=== PATIENT | female | born 1930 | race Caucasian/White ===

== ENCOUNTER 2017-02-02 17:31 | Inpatient (IN) ==
[2017-02-02 18:45] LABS: MANUAL DIFF NEEDED? NO
[2017-02-02 18:55] LABS: BASO% 0.2 % (0.0-0.8); EOS# 0.02 X1000 (0.0-0.7); EOS% 0.2 % (0.0-10.0); HEMATOCRIT 41.5 % (37.0-47.0); HEMOGLOBIN 13.5 g/dL (12.0-16.0); IMM GRAN# 0.03 X1000 (0.0-0.04); IMM GRAN% 0.3 % (0.0-0.5); LYMPH# 0.85 X1000 (1.2-3.4); LYMPH% 7.9 % (20.5-51.1); MCH 30.4 PG (27-31); MCHC 32.5 g/dL (33-37); MCV 93.5 FL (81-99); MONO% 8.4 % (1.7-9.3); MPV 10.5 FL (7.4-10.4); PLT 249 X1000 (130-400); RBC 4.44 XMIL (4.2-5.4)
[2017-02-02] MEDS ORDERED: DUONEB (A & A) INH ONE (18:57)
[2017-02-02] MEDS ORDERED: MERREM 500 MG in NS 50 ML IV ONE (18:59)
[2017-02-02 19:19] LABS: ALBUMIN 3.9 g/dL (3.5-5.0); CALCIUM 9.1 mg/dL (8.8-10.2); POTASSIUM 3.8 mmol/L (3.5-5.1); TOTAL BILIRUBIN 0.74 mg/dL (0.20-1.00)
[2017-02-02] MEDS ORDERED: NS 500 ML IV ONE (20:30)
--- NOTE | 2017-02-02 20:40 | PROVIDER DOCUMENTATION ---
This chart was entered by Isabel Rios Scribe, acting as scribe for Chicho Lee MD. HPI-Respiratory General - General Chief Complaint: Possible Sepsis-D Stated Complaint: SOB Time Seen by Provider: 02/02/17 18:26 Source: family (daughter) Allergies/Adverse Reactions: Patient Allergies Allergy/AdvReac Type Severity Reaction Status Date / Time Penicillins Allergy Intermediate ITCHING Verified 07/16/15 18:07 Sulfa (Sulfonamide Allergy Mild Unknown Verified 07/16/15 18:07 Antibiotics) Home Medications: Home Medication List Medication Instructions Recorded Confirmed Last Taken Type Aspirin [Ecotrin] 81 mg PO DAILY 03/27/15 07/16/15 07/16/15 History Atorvastatin Calcium [Lipitor] 80 mg PO DAILY 03/27/15 07/16/15 07/16/15 History Clopidogrel Bisulfate [Plavix] 75 mg PO DAILY 03/27/15 07/16/15 07/16/15 History Lisinopril 10 mg PO DAILY 03/27/15 07/16/15 07/16/15 History Metoprolol Succinate 50 mg PO DAILY 03/27/15 07/16/15 07/16/15 History Levofloxacin [Levaquin] 500 mg PO DAILY #0 tablet 03/30/15 07/16/15 07/16/15 Rx Omeprazole 20 mg PO DAILY #20 tablet. 07/16/15 Unknown Rx - History of Present Illness-Resp Nature of Presenting Problem: 86 Y/O F presents to ED with Respiratory issues. Pt mother states that on Dec 25 the Pt was placed in [facility] for 5 days, diagnosed with CHF,pneumonia , Altered Mental Status, went to rehab after for 12 days then released. Daughter believed that mother is currently sick due to the confusion of taking meds. Daughter states Pt was diagnosed with a URI on Tuesday and finished the 3 day pack of antibiotics. States limited walking, and generalized deterioration of health. Quality of Pain: reports: aching Severity in ED: reports: severe Onset/Duration: reports: 3 days ago Timing: reports: still present Exposure: reports: illness exposure Cough Quality/Degree: reports: productive cough, sputum Current Respiratory Medication Therapy: Initiated none Associated Symptoms: reports: cough, fever/chills, muscle/bodyaches, nasal congestion Review of Systems - Adult - REVIEW OF SYSTEMS - ADULT Constitutional: reports: fever. denies: chills Eyes: reports: no symptoms reported Ears, Nose, Mouth & Throat: reports: sinus problem Cardiovascular: reports: no symptoms reported Respiratory: reports: cough, excessive sputum production, shortness of breath Gastrointestinal: reports: abdominal pain. denies: diarrhea, nausea, vomiting Genitourinary: reports: no symptoms reported Musculoskeletal: reports: no symptoms reported Integumentary: reports: no symptoms reported Neurological: reports: no symptoms reported Psychiatric: reports: no symptoms reported Endocrine: reports: no symptoms reported Hematologic/Lymphatic: reports: no symptoms reported Allergic/Immunologic: reports: no symptoms reported All Other Systems: Reviewed and Negative Past History - Adult - PAST MEDICAL HISTORY-ADULT Review of Records: reports: Old Records Reviewed, Nursing Assessment Review, Medications Reviewed, Social history reviewed & non-contributory. Major Childhood Illnesses: reports: denies history Cardiovascular: reports: denies history Respiratory: reports: denies history Gastrointestinal: reports: denies history Obstetrical/Gynecological: reports: denies history Genitourinary: reports: denies history Musculoskeletal: reports: denies history Neurological: reports: CVA Endocrine/Immune: reports: denies history Other Conditions: reports: denies history - FAMILY HISTORY Family History: reviewed, not pertinent - SOCIAL HISTORY Smoking: non-smoker Substance Use: none/never Alcohol Use Frequency: never Living Situation: family Physical Exam-General - PHYSICAL EXAM-ADULT Initial Vital Signs Reviewed: Yes - CONSTITUTIONAL General Appearance: alert, mild distress, thin, lethargic - EYES Eyes: PERRL/EOMI, pink conjunctivae, fundi clear, no AV nicking - HEAD, EARS, NOSE, MOUTH & THROAT HENMT: normocephalic/atraumatic, TMs normal, pharynx normal. negative: moist mucous membranes - NECK Neck: non-tender, full range of motion, supple, normal inspection - RESPIRATORY Respiratory: other (course breath sounds bilateral). negative: lungs clear, normal breath sounds - GASTROINTESTINAL (ABDOMEN) Abdominal Exam: soft, tenderness (LLQ) - LYMPHATIC Lymphatic: no adenopathy - MUSCULOSKELETAL Back Exam: normal inspection, no CVA tenderness, no vertebral tenderness Extremity: non-tender - SKIN Integumentary: normal turgor, warm/dry - NEUROLOGIC Neurologic: education rn II-XII nml as tested - PSYCHIATRIC Psych/Mental Status: normal mood/affect, normal thought content, normal thought process Progress - PLAN OF CARE/RESULTS Progress/Plan/Lab Results: Vital Signs - 8 hr 02/02/17 17:38 02/02/17 19:53 Temperature 98 F Pulse Rate 94 H 90 Respiratory Rate 24 16 Blood Pressure 149/89 O2 Sat by Pulse Oximetry 95 Laboratory Results - last 24 hr 02/02/17 02/02/17 02/02/17 17:39 17:39 17:39 WBC 10.75 RBC 4.44 Hgb 13.5 Hct 41.5 MCV 93.5 MCH 30.4 MCHC 32.5 L RDW Std Deviation 13.0 Plt Count 249 MPV 10.5 H Immature Gran % (Auto) 0.3 Neut % (Auto) 83.0 H Lymph % (Auto) 7.9 L Irion % (Auto) 8.4 Eos % (Auto) 0.2 Baso % (Auto) 0.2 Immature Gran # (Auto) 0.03 Neut # (Auto) 8.93 H Lymph # (Auto) 0.85 L Irion # (Auto) 0.90 H Eos # (Auto) 0.02 Baso # (Auto) 0.02 Sodium 133 L Potassium 3.8 Chloride 86 L Carbon Dioxide 27 Anion Gap 20 BUN 54 H Creatinine 1.7 H Estimated GFR/1.73 m2 28 BUN/Creatinine Ratio 32 Glucose 107 H Calculated Osmolality 282 Calcium 9.1 Total Bilirubin 0.74 AST 29 ALT 17 Alkaline Phosphatase 43 Creatine Kinase 106 Troponin T 0.013 Total Protein 8.0 Albumin 3.9 Globulin 4.1 Albumin/Globulin Ratio 1.0 Plasma Lactate 02/02/17 18:02 WBC RBC Hgb Hct MCV MCH MCHC RDW Std Deviation Plt Count MPV Immature Gran % (Auto) Neut % (Auto) Lymph % (Auto) Irion % (Auto) Eos % (Auto) Baso % (Auto) Immature Gran # (Auto) Neut # (Auto) Lymph # (Auto) Irion # (Auto) Eos # (Auto) Baso # (Auto) Sodium Potassium Chloride Carbon Dioxide Anion Gap BUN Creatinine Estimated GFR/1.73 m2 BUN/Creatinine Ratio Glucose Calculated Osmolality Calcium Total Bilirubin AST ALT Alkaline Phosphatase Creatine Kinase Troponin T Total Protein Albumin Globulin Albumin/Globulin Ratio Plasma Lactate 2.9 H Orders Category Date Time Status Cardiac Monitoring DIRECTED Care 02/02/17 18:37 Active IV Insertion ORDERED Care 02/02/17 18:37 Active Notify of + Sepsis Screen NOW Care 02/02/17 18:37 Active CHEST-PORTABLE [RAD] Stat Exams 02/02/17 18:56 Taken BLOOD CULTURE [BLDCUL] Stat Lab 02/02/17 18:00 Results BNP [PRO B-NATRIURETIC PEPTIDE] Stat Lab 02/02/17 20:31 Ordered CBC WITH DIFF [HEME] Stat Lab 02/02/17 17:39 Completed CK PROFILE [SP CHEM] Stat Lab 02/02/17 17:39 Completed COMPREHENSIVE METABOLIC PANEL [CHEM] Stat Lab 02/02/17 17:39 Completed LACTATE, PLASMA [CHEM] Stat Lab 02/02/17 18:02 Received PROTIME WITH INR [COAG] Stat Lab 02/02/17 17:39 Ordered PTT [COAG] Stat Lab 02/02/17 17:39 Ordered TROPONIN T Stat Lab 02/02/17 17:39 Completed URINALYSIS W/POSS RFLX CULT [URINALYSIS] Stat Lab 02/02/17 18:37 Uncollected Albuterol 2.5MG/Ipratrop 0.5MG [Duoneb (A & A)] Med 02/02/17 18:57 Discontinued 3 ml INH NOW ONE Meropenem [Merrem] 500 mg Med 02/02/17 18:59 Discontinued 0.9% Sodium Chloride Inj [Ns] 50 ml IV NOW Ns 500 ml IV Bolus X1 Med 02/02/17 20:30 Ordered 0.9% Sodium Chloride Inj [Ns] 500 ml IV 999 mls/hr Aerosol Treatments Routine Oth 02/02/17 18:59 Completed Aerosol Treatments Stat Oth 02/02/17 18:59 Completed Oxygen Device Stat Oth 02/02/17 18:37 Active Result Diagrams: 02/02/17 17:39 02/02/17 17:39 - EKG 1 Time of EKG reading by physician:: 18:04 EKG Read and Signed by:: Chicho Lee EKG Interpretation (*Must complete 3 of following elements*): Abnormal Rate: 94 Rhythm: SR w/ occassional premature ventricular complexes and atrial complexes QRS: RBB (incomplete), LVH (w/ repolarization abnormality) Comments: Abnormal ECG - XRAY 1 XRAY Study: Chest Impression: Abnormal XRAY Interpretation: solid mass in right apex - CONSULTS/PCP/HOSPITALIST Notification #1 *Consult/PCP/Hospitalist*: Time Discussed: 20:27 Reason/Comments: Admit Consult Disposition: Admit (Admit Accepted) Departure - Departure Time of Disposition Decision: 20:39 DIAGNOSIS: Pneumonia Qualifiers: Pneumonia type: due to unspecified organism Laterality: unspecified laterality Lung location: unspecified part of lung Qualified Code(s): J18.9 - Pneumonia, unspecified organism Disposition: ADMITTED INPATIENT 09 Certified Medical Emergency: Emergent Condition: Stable Additional Freetext Instructions: ED Follow Up Instructions: You have been treated by a care provider in the Emergency Department. These instructions are being provided to you so you can have an understanding of how to care for yourself upon discharge. Upon discharge from the Emergency Department, you are responsible for making arrangements for follow-up care by a physician of your choice. Take all prescribed medications as directed. Return to the Emergency Department immediately for any new or worsening symptoms. You may call the Physician Referral phone number at [phone] to obtain a list of Physicians who are taking new patients. Referrals and Follow-Ups: Chip Means MD [Primary Care Provider] - This chart was documented by the indicated scribe, (Isabel Rios Scribe) and accurately reflects the services I performed and decisions made by me, Chicho Lee MD, as attested by the provider's signature.
[2017-02-02 20:59] LABS: INR 1.05; PROTIME 11.1 Seconds (9.2-11.7); PTT 29.8 Seconds (22.0-36.0)
[2017-02-02] MEDS ORDERED: LASIX IV ONE (21:00)
[2017-02-02 21:12] LABS: URINE CULTURE NEEDED? NO; URINE MICRO REVIEW NEEDED? NO; URINE SOURCE CATH
[2017-02-02 21:19] LABS: BILIRUBIN URINE NEGATIVE (NEGATIVE); BLOOD URINE NEGATIVE (NEGATIVE); COLOR STRAW; GLUCOSE URINE NEGATIVE (NEGATIVE); LEUKOCYTES URINE NEGATIVE (NEGATIVE); NITRITE URINE NEGATIVE (NEGATIVE); PROTEIN URINE NEGATIVE (NEGATIVE); SP GRAVITY URINE 1.008; TURBIDITY URINE CLEAR (CLEAR); UROBILINOGEN URINE NORMAL (NORMAL)
[2017-02-02 21:20] LABS: UR EPITHELIAL CELLS <10 /HPF (<10); URINE BACTERIA NEGATIVE /HPF; URINE RBC <10 /HPF (<10); URINE WBC <10 /HPF (<10)
[2017-02-02] MEDS ORDERED: NS 1,000 ML IV ONE (23:24)
[2017-02-02] MEDS ORDERED: ZOFRAN IV PRN (23:24)
--- NOTE | 2017-02-03 01:02 | HISTORY AND PHYSICAL ---
CHIEF COMPLAINT: Shortness of breath. HISTORY OF PRESENT ILLNESS: Ms Carrillo is a 86-year-old female, with a known torturous aorta, per the daughter at bedside. She has congestive heart failure, previous CVA, coronary artery disease with stenting, hypertension and hyperlipidemia. She was previously just discharged from [facility] after 5 day stay where she was treated for congestive heart failure, altered mental status related to a urinary tract infection, per the daughter. She was then released to rehab for 12 days. She started having a wet cough with shortness of breath, and increased altered mental status over the last week. However, the daughter did say that the patient's altered mental status has been worsening over the last year. Her health in general has been deteriorating over the last little while. She has had decreased ability to ambulate, and just overall generalized ability to thrive. She lives at home with her elderly . The daughter thinks that it is possible that she may need longer term care, as she was doing well at rehab, but then started not to do well again at home. A chest x-ray was obtained, which looked like increased pulmonary vascular congestion, but the ER provider thought it looked like pneumonia. A CT of the thorax was done to differentiate, and was read as atelectasis versus fibrosis. No mass, effusion or pneumonia. 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 The patient is oriented only to person, and no way oriented to place, time and situation. She will be admitted to the medical floor for further evaluation and treatment. ALLERGIES: Penicillin and sulfa. PAST MEDICAL HISTORY: 1. Coronary artery disease with stenting. 2. Congestive heart failure, unknown ejection fraction. Last echo was 2 years ago, showed a 65% ejection fraction. 3. Urinary tract infection. 4. Altered mental status. 5. CVA. 6. Hypertension. 7. Hyperlipidemia. PREVIOUS SURGICAL HISTORY: 1. Cardiac stenting x2. 2. Appendectomy. SOCIAL HISTORY: Lives with her elderly . Quit smoking 4 to 5 years ago. Apparently smoked 2 packs a week at that time. Unable to quantify how long she had smoked. The daughter said for many years. Daughter states that she is not used alcohol or had no history of illicit drug use or abuse. FAMILY HISTORY: Mother had congestive heart failure. Patient's daughter has hypertension and hyperlipidemia. HOME MEDICATIONS: Have not been reconciled. An order has been placed for nursing to reconcile home medications. REVIEW OF SYSTEMS: Fourteen point review of systems could not be obtained related to patient's mentation. DIAGNOSTIC DATA: Chest x-ray appeared to be increased pulmonary vascular congestion versus pneumonia. A CT of the thorax was obtained, which revealed that it was atelectasis versus fibrosis, excluded mass, effusion or pneumonia. It did show an aortic aneurysm of 5.3 cm at the aortic arch. LABORATORY DATA: CBC within normal limits. Coag's within normal limits. Sodium 133, potassium 3.8, chloride 86, carbon dioxide 27, BUN 54, creatinine 1.7, glucose 107. CK 106. Troponin 0.013. ProBNP 2826. Urine unremarkable. PHYSICAL EXAMINATION: VITAL SIGNS: Temperature 98, pulse 90, respirations 16, blood pressure 90/56, oxygen saturation 90 to 95% on 4 L nasal cannula. GENERAL: Chronically ill appearing, confused 86-year-old female, lying in the ER stretcher, is only oriented to person. Disoriented to place, time and situation. HEENT: Head is atraumatic, normocephalic. Pupils equal, round, react to light. Extraocular eye movement intact. Sclerae is anicteric. Conjunctivae is pink. Oral mucosa is moist. NECK: Supple. No JVD. No thyromegaly. Trachea is midline. CARDIAC: Regular rate and rhythm. S1-S2 appreciated. No murmurs, gallops, rubs. LUNGS: Crepitations noted throughout bilateral air butt, decreased inspiratory effort. No rhonchi, no rales. ABDOMEN: Soft, nondistended, nontender. Bowel sounds present in all 4 quadrants, normoactive. No pulsatile mass. No organomegaly. EXTREMITIES: Trace lower extremity edema, nonpitting, midshin to foot, 1+ pedal pulses. NEUROLOGICAL: Oriented to person, disoriented to place, time and situation. GENITOURINARY: The patient voids, otherwise deferred. ASSESSMENT AND PLAN: 1. Altered mental status of unknown etiology. The patient does appear to have acute kidney injury, mild, does not appear to have an infectious source. She has a normal white blood cell count and her urine is negative for bacteria, and her chest x-ray per CT of thorax did not show an infiltrate or pneumonia. 2. Atelectasis versus fibrosis. I will instruct the patient to deep breathe. Again, she is altered. We will continue to follow. 3. Acute kidney injury. The patient has chronic kidney disease. Her baseline creatinine appears to be around 1.5. She is at 1.7 at this time. We will give very gentle fluid hydration at 50 mL an hour. 4. Mild hyponatremia, hopeful this will be fixed with the IV fluids. ADDITIONAL ORDERS: 1. Blood cultures have been obtained. 2. The patient will have a Norwood catheter for strict I's and O's. 3. Echocardiogram in the morning. 4. Repeat laboratory data. 5. Zofran as needed for nausea. 6. Further recommendations per patient's clinical course. Dictated by AMI Hair for Pola Cooley MD cc: AMI Hair MD
--- NOTE | 2017-02-03 05:47 | EKG Report ---
Test Performed on : 02/02/2017 6:04:55 PM Test Reason : SOB Blood Pressure : / mmHG Vent. Rate : 094 BPM Atrial Rate : 094 BPM P-R Int : 132 ms QRS Dur : 110 ms QT Int : 350 ms P-R-T Axes : 097 -54 106 degrees QTc Int : 437 ms Sinus rhythm. with occasional premature ventricular complexes. and premature atrial complexes. Incomplete right bundle branch block Left anterior fascicular block Left ventricular hypertrophy with repolarization abnormality Cannot rule out Septal infarct (cited on or before 24-DEC-2013) Abnormal ECG When compared with ECG of 16-JUL-2015 15:45, premature ventricular complexes. are now present premature atrial complexes. are now present Unconfirmed Result
[2017-02-03] MEDS ORDERED: DUONEB (A & A) INH PRN (06:26)
[2017-02-03 06:27] LABS: MANUAL DIFF NEEDED? NO
[2017-02-03 06:43] LABS: BASO% 0.3 % (0.0-0.8); EOS% 1.3 % (0.0-10.0); HEMATOCRIT 38.2 % (37.0-47.0); HEMOGLOBIN 12.5 g/dL (12.0-16.0); IMM GRAN# 0.03 X1000 (0.0-0.04); IMM GRAN% 0.4 % (0.0-0.5); LYMPH# 1.21 X1000 (1.2-3.4); MCH 30.6 PG (27-31); MCHC 32.7 g/dL (33-37); MCV 93.4 FL (81-99); MONO# 0.86 X1000 (0.11-0.59); MONO% 11.4 % (1.7-9.3); NEUT% 70.6 % (42.2-75.2); PLT 231 X1000 (130-400); RBC 4.09 XMIL (4.2-5.4)
[2017-02-03 07:02] LABS: CALCIUM 8.6 mg/dL (8.8-10.2); POTASSIUM 3.5 mmol/L (3.5-5.1)
--- NOTE | 2017-02-03 07:36 | Diag Imaging Result Document ---
PROCEDURE NAME: CHEST-PORTABLE - 02/02/2017 PORTABLE CHEST X-RAY, 02/02/2017: COMPARISON: 07/16/2015. FINDINGS: Lung volumes are much lower with central crowding. There is mild cardiomegaly. No definite infiltrates. IMPRESSION: Nonspecific findings.
--- NOTE | 2017-02-03 07:44 | Diag Imaging Result Document ---
PROCEDURE NAME: CT THORAX W/O CONTRAST - 02/02/2017 CT CHEST: A CT dose reduction protocol was used. COMPARISON: Chest x-ray earlier 02/02/2017. FINDINGS: There is aneurysmal dilation of the aortic arch measuring up to 5.3 cm, at the level of the descending arch just beyond the left subclavian artery. There is diffuse vascular disease. There is also severe coronary artery disease. There is dilation of the abdominal aorta as well but this is only partially visible. No mass or adenopathy. There is diffuse bronchitis bilaterally with basilar predominance. There is some trace infiltrate or atelectasis in the lung bases. Lungs are hyperlucent suggesting COPD. No pneumothorax or pleural effusion. There are numerous compression fractures in the thoracic spine that have worsened since prior. IMPRESSION: 1. COPD with chronic bronchitis. 2. Trace atelectasis or infiltrates in the lung bases. 3. Aneurysmal dilation of the aortic arch. 4. Worsening thoracic spine compression fractures. [facility]
[2017-02-03] MEDS: DUONEB (A & A) INH SCH ×5 (08:22→22:50)
[2017-02-03] MEDS: MERREM 1 GM in NS 50 ML IV SCH ×2 (09:03→17:17)
--- NOTE | 2017-02-03 13:07 | PROGRESS NOTE ---
DATE: 02/03/2017 This is an 86-year-old with known torturous aorta that presented to the emergency room complaining of shortness of breath. She was told she had congestive heart failure, previous CVA, coronary artery disease with stenting, hypertension, hyperlipidemia. Previously discharge starts from [facility] after 5 days stay where she was treated for congestive heart failure, altered mental status related to urinary tract infection per her daughter. She was then released to rehab for 12 days, started having a wet cough and shortness of breath and increased altered mental status over the last week before presentation however the daughter did say that the patient has showed altered mental status that has been worsening over last year. Her health in general has been deteriorating for a little while. Had decreased ability to ambulate and just overall decreased ability to thrive. Lives at home with her elderly . Her daughter thinks it is possible she may need long-term care or help. Chest x-ray was obtained. Looked like increased pulmonary vascular congestion, questionable pneumonia. CT of the thorax was done to differentiate and was read as atelectasis versus fibrosis. No mass. No diffusion or pneumonia. 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 Daughter states patient has a history of this. Once again, reviewed past medical history. PAST MEDICAL HISTORY: 1. Coronary artery disease with stenting. 2. Congestive heart failure. Known ejection fraction 2 years ago with 65% by report. 3. Urinary tract infection. 4. Altered mental status. 5. CVA. 6. Hypertension. 7. Hyperlipidemia. She has had cardiac stenting x2 and appendectomy. On exam today, she does say she feels better. She is in the process about getting an echocardiogram. Her at the bedside. Her daughter arrived shortly after that. She is breathing comfortably and feels a little stronger. Temp 97.9 degrees, pulse 60, respirations 16, blood pressure 90/53, CVP less than 6 cm.Lungs: Clear in all lung butt. Cardiovascular: Regular rhythm and rate without murmur or S3. Abdomen: Soft. Skin: Is warm and dry. I reviewed the labs from last 2 days. Hematocrit stable around 38-41. Electrolytes were unremarkable. Creatinine did come down from 1.7 to 1.5. ASSESSMENT AND PLAN: 1. Altered mental status. Probably multifactorial. Seems to be doing better and does not appear to have infectious source. Does not appear to have pneumonia. 2. Atelectasis versus fibrosis. Breathing does seem to be doing better. 3. Acute kidney injury. Creatinine has dropped from with some fluids which is encouraging. 4. Mild hyponatremia which is improved with IV fluids. 5. History of congestive heart failure. History of coronary artery disease. We will check an echocardiogram. I have looked at her orders. I do not see anything to change at this point, except we will stop the meropenem. I do not see any evidence of bacterial infection. cc: Martin Walker MD
--- NOTE | 2017-02-03 17:08 | ECHO REPORT ---
ORDER DATE: 02/03/2017 INTERPRETING PHYSICIAN: Dr. Aldana CLINICAL INDICATIONS: Tvtsik[age]nut[age]-old female, congestive heart failure, coronary heart disease. SERVICE: Hospitalist service. FINDINGS: Study is technically difficult. M-MODE MEASUREMENTS: Right ventricle is not well measured. Left ventricle end diastole: 3.6 cm. Left ventricle end systole: 2.8 cm. Posterior wall: 1.1 cm. Interventricular septum: 1.1 cm. Left atrium: 3.4 cm. Aortic root: 4.6 cm. SUMMARY OF 2-DIMENSIONAL IMAGING: Left ventricular function is hyperdynamic. The patient is in atrial fibrillation with a rapid response. No definite wall motion abnormality appears to be present. Ejection fraction is probably in the order of 70% to 75%. The right ventricle is not dilated. The aortic valve opens normally. Color flow mapping indicates mild to moderate degree of regurgitation. The mitral valve opens normal. Color flow mapping indicates no significant regurgitation. Pulse wave Doppler of mitral inflow shows single filling wave. Tissue Doppler of septal and lateral mitral annulus averages 5 cm. Impaired left ventricular relaxation is probably present. Pulmonic valve shows mild degree of regurgitation. Tricuspid valve shows mild degree of regurgitation. Inferior vena cava is enlarged. The pulmonary pressure is estimated at 48 mmHg. No pericardial effusion, masses, or thrombus noted. SUMMARY: 1. This study was technically very difficult because the patient has poor acoustic windows and is in atrial fibrillation with a rapid response. 2. Mild to moderate degree of aortic regurgitation. 3. Mild degree of tricuspid regurgitation and pulmonic regurgitation. Pulmonary pressure estimated at 48 mmHg. Clinical correlation is strongly recommended. cc: MD Davon Marc CRNP
[2017-02-04] MEDS ORDERED: CARDIZEM IV ONE (00:10)
[2017-02-04] MEDS ORDERED: NS 500 ML IV ONE (00:10)
[2017-02-04 01:35] LABS: CK INDEX 1.1 (0.0-2.5); CK-MB 2.34 ng/mL (0.0-5.0)
[2017-02-04] MEDS: LANOXIN IV SCH ×4 (01:40→13:24)
[2017-02-04] MEDS: NS 1,000 ML IV SCH ×2 (01:40→17:59)
[2017-02-04] MEDS: LOPRESSOR PO SCH ×4 (01:40→22:07)
[2017-02-04] MEDS: MERREM 1 GM in NS 50 ML IV SCH ×3 (03:43→22:05)
[2017-02-04] MEDS: DUONEB (A & A) INH SCH ×4 (04:54→15:20)
--- NOTE | 2017-02-04 05:33 | EKG Report ---
Test Performed on : 02/03/2017 11:46:00 PM Test Reason : HR 170s on tele Blood Pressure : / mmHG Vent. Rate : 145 BPM Atrial Rate : 163 BPM P-R Int : 000 ms QRS Dur : 112 ms QT Int : 300 ms P-R-T Axes : 000 -53 111 degrees QTc Int : 466 ms Atrial fibrillation. with rapid ventricular response. Incomplete right bundle branch block Left anterior fascicular block Voltage criteria for left ventricular hypertrophy Cannot rule out Septal infarct (cited on or before 24-DEC-2013) Inferior injury pattern ACUTE NV / STEMI (suspect rate related ischemia instead) Consider right ventricular involvement in acute inferior infarct Abnormal ECG When compared with ECG of 02-FEB-2017 18:04, Atrial fibrillation. has replaced Sinus rhythm. Vent. rate has increased BY [address] no longer depressed in Inferior leads ST more depressed in Lateral leads Confirmed by Trice ESPINO, Juma Maldonado ([id number]) on 02/04/2017 5:41:45 PM
--- NOTE | 2017-02-04 05:34 | EKG Report ---
Test Performed on : 02/04/2017 02:15:46 AM Test Reason : afib Blood Pressure : / mmHG Vent. Rate : 115 BPM Atrial Rate : 141 BPM P-R Int : 000 ms QRS Dur : 112 ms QT Int : 352 ms P-R-T Axes : 000 -52 111 degrees QTc Int : 486 ms Atrial fibrillation. with rapid ventricular response. Incomplete right bundle branch block Left anterior fascicular block Voltage criteria for left ventricular hypertrophy Cannot rule out Septal infarct (cited on or before 24-DEC-2013) ST \T\ T wave abnormality, consider lateral ischemia Abnormal ECG When compared with ECG of 03-FEB-2017 23:46, (Unconfirmed) No significant change was found Confirmed by Trice ESPINO, Juma Maldonado ([id number]) on 02/04/2017 5:42:05 PM
[2017-02-04 06:52] LABS: CALCIUM 8.4 mg/dL (8.8-10.2); MAGNESIUM 1.8 mg/dL (1.5-2.7); POTASSIUM 3.1 mmol/L (3.5-5.1)
[2017-02-04 07:10] LABS: FREE T4 1.57 ng/dL (0.93-1.70)
[2017-02-04 07:17] LABS: CK INDEX 1.4 (0.0-2.5); CK-MB 2.78 ng/mL (0.0-5.0)
[2017-02-04] MEDS: ASPIRIN EC PO SCH (09:00)
--- NOTE | 2017-02-04 09:14 | PROGRESS NOTE ---
DATE: 02/04/2017 SUBJECTIVE: Ms. Carrillo says she is feeling better. I talked to Dr. Daryl wick yesterday and last night. Had a lot of trouble with atrial fibrillation. She was given some digoxin, and I think, some Lopressor. EKG confirmed atrial fibrillation with rapid ventricular response, incomplete right-bundle branch block, and left anterior fascicular block. She had voltage criteria for LVH. Not truly impressed with ST-segment changes. That EKG done at 2340 hours yesterday. EKG done this morning, atrial fibrillation. Ventricular rate down to 110. Still incomplete right-bundle branch block. Left anterior fascicular block. ST segments unremarkable. She was sitting up about ready to eat breakfast. OBJECTIVE: Vital Signs: Afebrile. Temp 98.5 degrees, pulse 90, respirations 16, blood pressure has been in the high 90s, 95 to 112 over 60s. Lungs: Clear anterolateral. Cardiovascular: Regular rate without murmur or S3. Abdomen: Soft. Skin: Warm and dry. : Urine output 1900 mL. LAB: While reviewed from yesterday. Hematocrit is stable at 38. Chemistries this morning, sodium 138, potassium 3.1, chloride 95, bicarb 33, BUN 37, creatinine 1.3. Of note, the troponin did bump up from 0.057 to 0.093. T4 and TSH looked good. ASSESSMENT AND PLAN: 1. Altered mental status, probably multifactorial. Seemed to be doing better. Does not appear to have any infectious source. Does not appear to have pneumonia. 2. Atelectasis versus fibrosis. She is on O2. 3. Acute kidney injury. Suspect underlying chronic kidney disease. Creatinine has been improving. 4. Mild hyponatremia, which is a better with fluids. 5. History of congestive heart failure. History of coronary artery disease. Echocardiogram with Doppler was done yesterday, read by Dr. Aldana. Technically very difficult study. Poor acoustic windows. The patient was in atrial fibrillation with rapid response. Mild-to- moderate degree of aortic regurgitation. Mild degree of tricuspid regurgitation. Pulmonary pressure estimated at 48 mmHg. No definite wall motion abnormality. Ejection fraction in order of 70% to 75%. cc: Martin Walker MD
[2017-02-04 11:08] LABS: CK INDEX 1.5 (0.0-2.5); CK-MB 3.33 ng/mL (0.0-5.0)
--- NOTE | 2017-02-04 11:15 | CONSULTATION ---
DATE OF CONSULTATION: 02/04/2017 SUBJECTIVE: Cardiology was consulted for atrial fibrillation, hypotension and abnormal cardiac enzymes. This is an 86-year-old, lady with known history of coronary artery disease, history of heart failure, CVA, hypertension and hyperlipidemia was discharged from [facility] about 5 days ago, where she was admitted with congestive heart failure, altered mental status and urinary tract infection. She has been released to rehab for 12 days. She was having cough with some expectoration and shortness of breath. She is in poor health and subsequently she was brought to the hospital and admitted. A CT scan was done, which revealed atelectasis versus fibrosis. No effusion or mass was noted. 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 She denies chest pain or palpitations. She is in poor health, in addition has decreased oral intake as well. REVIEW OF SYSTEMS: A 14-point review of system was done. GI System: There is no history of nausea, vomiting, or diarrhea. There is no history of hematemesis or melena. Central Nervous System: No focal weakness to suggest a CVA or TIA. System: There is no dysuria or hematuria. Respiratory System: As above. In addition, there is no fevers or chills. PAST MEDICAL/SURGICAL HISTORY: 1. Recent admission and discharge from [facility] with hypertensive emergency, hypertensive encephalopathy, urinary tract infection. 2. History of thoracic aorta aneurysm measuring 5 cm, stable since 2013. 3. Chronic deconditioning of health. 4. Code status. Do not resuscitate. 5. Cardiac history. Last cardiac catheterization 03/07/2014. Left main was normal. Left anterior descending artery 75% spanning the origin of the diagonal artery. Treated with PTCA and drug-eluting stent. Circumflex luminal irregularities. RCA dominant mid 100% occluded treated with PTCA and drug-eluting stent. Last echocardiogram ejection fraction 60%. 6. Hypercholesterolemia. 7. She is allergic to penicillin and sulfonamides. 8. Surgical history include appendectomy. 9. Other history includes CVA. CURRENT MEDICATIONS: Include nebulizers, aspirin 81 mg a day, Lanoxin 250 mg IV was given 1 time dose, metoprolol 25 mg q.6 hours, IV saline 75 mL an hour. Her home medications also included Plavix 75 mg a day, lisinopril 10 mg a day, omeprazole 20 and atorvastatin 80 mg. PHYSICAL EXAMINATION: Vital Signs: Blood pressure was 102/80. Cardiovascular System: Normal jugular venous pressure. First and second heart sounds were heard. There was faint systolic murmur. Exploratory wheeze bilateral was noted. Abdomen: Soft, nontender. There was no guarding or rigidity. Bowel sounds were heard. Central Nervous System: Alert and oriented. Moving all 4 extremities. Extremities: Examination of extremities revealed no pedal edema. HEENT: Atraumatic, normocephalic. Pupils were reacting to light. LABORATORY EXAMINATION: Revealed abnormal troponin of 0.057 and then 0.093. CK-MB were normal. Total CK 199 and 215. Sodium 138, potassium 3.1, BUN 37, creatinine 1.3. WBC 12.5, hematocrit 38, white count of 7.55, platelet 231,000. ASSESSMENT AND PLAN: 1. Ms. Marcial Carrillo is 86-year-old, lady with known history of aortic aneurysm. 2. Congestive heart failure. 3. Coronary artery disease, status post drug-eluting stent to the left anterior descending artery and right coronary artery in 2013. 4. Dyslipidemia 5. Hypertension. Is admitted having had shortness of breath and cough. She was noted to be in atrial fibrillation and she is currently in atrial fibrillation. Rate is under control with Lopressor. RECOMMENDATIONS: 1. Her ejection fraction is normal she has had probably a non-Q-wave CT, borderline abnormal troponin but CKs were normal and she does not have chest pain. I had a detailed discussion with patient's daughter and . We will manage her medically. She is comfortable at the moment. In addition to aspirin and Plavix, we will continue beta-blockers. 2. As far as atrial fibrillation is concerned, that rate should be control with metoprolol. She is on 25 mg q.6 hours. We will continue that once her blood pressure stabilizes. We will leave her on metoprolol 50 mg twice a day or 25 mg twice daily depending on her blood pressure. 3. She is hypotensive. This could be because of chronic poor intake, as well as infection from her bronchitis as seen on the CT scan, for which she has been covered with antibiotics. Would recommend continuing the fluid at the current dosage. 4. As far as anticoagulation therapy is concerned, detailed discussion with the daughter. She is a fall risk and they choose to be on aspirin and Plavix alone rather than any anticoagulation therapy. Risks, benefits were explained to her. Thank you for the consult. We will follow . cc: Vikas Krishnamurthy MD
[2017-02-05] MEDS: DUONEB (A & A) INH SCH ×8 (01:31→23:30)
[2017-02-05] MEDS: LOPRESSOR PO SCH ×4 (03:30→20:50)
[2017-02-05] MEDS: MERREM 1 GM in NS 50 ML IV SCH (03:35)
[2017-02-05] MEDS: NS 1,000 ML IV SCH ×2 (06:34→18:14)
[2017-02-05] MEDS: ASPIRIN EC PO SCH (08:29)
[2017-02-05 10:18] LABS: CALCIUM 8.7 mg/dL (8.8-10.2); POTASSIUM 3.5 mmol/L (3.5-5.1)
--- NOTE | 2017-02-05 10:28 | PROGRESS NOTE ---
DATE: 02/05/2017 SUBJECTIVE: Ms. Carrillo is awake. She says she feels good, she feels better, sitting up, eating breakfast. She has remained afebrile. OBJECTIVE: Vital signs: Temp 97.8, pulse 98, respirations 18, blood pressure 88 to 103 over 50 to 70. HEENT: Pupils are equal and round. Lungs: Clear in all lung butt. Cardiovascular: Regular rhythm and rate without murmur or S3. Abdomen: Soft. Skin: Warm and dry. Urine output was 700 mL. LAB: Reviewed from the 6th: CPK was 199 and 221. A troponin was 0.093 and 0.081. T4 was 1.57 with a TSH of 0.25. ASSESSMENT AND PLAN: 1. Recent admission and discharge from [facility] with hypertensive emergency, hypertensive encephalopathy, and urinary tract infection. She has a known history of aortic aneurysm and congestive heart failure, coronary artery disease status post drug-eluting stent left anterior descending artery and the right coronary, 2013. Her ejection fraction is normal. Probably having a non-Q-wave LA. Borderline abnormal troponin. The CPKs were normal. Does not have any chest pain. Dr. Krishnamurthy following. I had a detailed discussion with her daughter and , plan to manage her medically. She does seem to be feeling better. 2. Atrial fibrillation, rate controlled on metoprolol. She is on 25 mg q.6 h. 3. Her blood pressure is between 88 [id number] over 51F to 71, so we will stabilize a little bit. 4. She is a fall risk and chose to be on aspirin and Plavix alone rather than anticoagulation. REVIEW OF HER ORDERS: She is getting fluids, normal saline, at 75 mL/h., Lopressor 25 mg p.o. q.6 h. She is getting meropenem 1 g q.8 h. Note her chest x-ray showed atelectasis versus fibrosis. She is on O2. There was no growth in the blood cultures. She remains afebrile. I do not know that I see any sign of active infection. Will stop the meropenem. Reviewed again the lab. No sign of sediment. cc: Martin Walker MD
--- NOTE | 2017-02-05 12:44 | Diag Imaging Result Document ---
PROCEDURE NAME: CHEST-PORTABLE - 02/05/2017 PORTABLE CHEST X-RAY: COMPARISON: 02/02/2017. FINDINGS: Stable cardiomegaly. Stable aneurysmal dilation of the aortic arch measuring up to 6 cm. No new or focal infiltrates. IMPRESSION: No acute disease or change from prior.
--- NOTE | 2017-02-05 13:30 | PROGRESS NOTE ---
DATE: 02/05/2017 SUBJECTIVE: Ms. Carrillo has been doing well. She is tolerating oral intake. No chest pain. No heart racing. PHYSICAL EXAMINATION: Vital Signs: She is afebrile. Heart rate is in the 80s to low 100s more recently. Blood pressure 109/57. General: No acute distress. Cardiovascular: She sounds to be in irregularly irregular rhythm. She has no obvious murmurs. No S3. She has no lower extremity edema. Chest: Clear bilaterally. No increased work of breathing. Abdomen: Soft and nontender. PERTINENT DATA: Sodium is 140, potassium 3.5, BUN 30, creatinine 1.2. ASSESSMENT: Atrial fibrillation. PLAN: Patient seems to be reasonably rate controlled. Aspirin is being continued due to the patient's fall risk and not wishing to proceed with more aggressive anticoagulation. I will not make any adjustments in her rate control options presently, as it seems to be doing well. cc: George Grajeda MD
[2017-02-06] MEDS: LOPRESSOR PO SCH ×4 (03:03→19:35)
[2017-02-06 05:35] LABS: MANUAL DIFF NEEDED? NO
[2017-02-06 05:46] LABS: BASO% 0.4 % (0.0-0.8); EOS# 0.64 X1000 (0.0-0.7); HEMATOCRIT 35.2 % (37.0-47.0); HEMOGLOBIN 11.1 g/dL (12.0-16.0); IMM GRAN# 0.04 X1000 (0.0-0.04); IMM GRAN% 0.6 % (0.0-0.5); LYMPH# 1.32 X1000 (1.2-3.4); LYMPH% 18.5 % (20.5-51.1); MCH 30.5 PG (27-31); MCHC 31.5 g/dL (33-37); MCV 96.7 FL (81-99); MONO# 0.82 X1000 (0.11-0.59); MONO% 11.5 % (1.7-9.3); MPV 9.8 FL (7.4-10.4); PLT 235 X1000 (130-400); RBC 3.64 XMIL (4.2-5.4)
[2017-02-06] MEDS: NS 1,000 ML IV SCH ×2 (05:57→19:36)
[2017-02-06] MEDS ORDERED: CALMOSEPTINE OINTMENT TOP PRN (06:14)
[2017-02-06] MEDS: DUONEB (A & A) INH SCH ×5 (07:50→23:00)
--- NOTE | 2017-02-06 07:51 | PROGRESS NOTE ---
DATE: 02/06/2017 SUBJECTIVE: Ms. Carrillo was sleeping, laying on her right side, breathing comfortably, easy to arouse. OBJECTIVE: Vital Signs: Temperature 97.9 degrees, pulse 88, respirations 15, blood pressure 106/62. Lungs: Lungs are clear in all lung butt. Cardiovascular: Regular rhythm and rate without murmur or S3. Abdomen: Soft. Skin: Warm and dry. She states she feels better. Her weight is 123 pounds. URINE OUTPUT: Appears to be 2400 mL. LABS: This morning white count 7140, hematocrit 35, platelet count 235,000. Sodium 140, potassium 3.5, chloride 102, bicarb 29. BUN 30, creatinine 1.2. Calcium 8.7. ASSESSMENT AND PLAN: 1. Atrial fibrillation. Rate appears to be controlled. I am going to continue her aspirin. Because of patient's high fall risk, not wishing to proceed with a more aggressive anticoagulation. Family wanted to make her no code. No chest x-ray from yesterday with no changes, no acute pathology. 2. She has had a recent admission and discharge from [facility] with hypertensive emergency and hypertensive encephalopathy. Suspect that was multifactorial. Had a urinary tract infection. She has a known history of aortic aneurysm and congestive heart failure and coronary artery disease, status post drug-eluting stent, left anterior descending, and the right coronary artery in 2013. Her direction fraction is normal. Suspect she had a non Q- wave myocardial infarction on presentation. 3. Blood pressure appears well controlled. Review of her orders, she is getting normal saline at 75 mL an hour, metoprolol 25 mg q.6, aspirin 81 mg a day. PO intake seems to be good. Discussed discharge planning. Note to repeat an echocardiogram with Doppler 02/03/2017. Technically had difficult study. Mild degree of aortic regurgitation. Mild degree of tricuspid regurgitation and pulmonic regurgitation. Pulmonary pressures were about 48 mmHg. cc: Martin Walker MD
[2017-02-06] MEDS: ASPIRIN EC PO SCH (08:04)
[2017-02-07] MEDS: LOPRESSOR PO SCH ×4 (02:57→22:01)
[2017-02-07] MEDS: DUONEB (A & A) INH SCH ×6 (03:30→23:35)
[2017-02-07] MEDS: ASPIRIN EC PO SCH (08:02)
[2017-02-07] MEDS: NS 1,000 ML IV SCH ×2 (08:04→21:45)
--- NOTE | 2017-02-07 08:43 | PROGRESS NOTE ---
DATE: 02/07/2017 SUBJECTIVE: The patient is awake and alert. She had a good night. She does state she is very weak and tired. She denied any chest pain. No shortness of breath. She still has Norwood catheter in place. OBJECTIVE: Vital signs: Temperature 98.1 degrees, pulse 87, respirations 16, and blood pressure 135/86. HEENT: Pupils equal and round. CVP less than 6 cm. Lungs: Clear in all lung butt. Cardiovascular: Regular rhythm and rate without murmur or S3. Abdomen: Soft. Skin: Warm and dry. Urine output 1600 mL. LABORATORY: White count 7140, hematocrit 35, platelet count 235,000. Hematocrit is stable. Sodium 140, potassium 3.5, chloride 102, bicarb 29, BUN 30 and creatinine 1.21. ASSESSMENT AND PLAN: 1. Atrial fibrillation. Rate is controlled reasonably well. 2. It appears that she has had a non Q wave ST ischemia treated medically. 3. Very weak, a fall risk. We have physical therapy assessing, but I think she would benefit from going to rehab. We will get social service involved and get physical therapy involved as well. cc: Martin Walker MD
[2017-02-08] MEDS: LOPRESSOR PO SCH ×4 (01:36→21:05)
[2017-02-08] MEDS: NS 1,000 ML IV SCH ×3 (03:21→21:05)
[2017-02-08] MEDS: DUONEB (A & A) INH SCH ×6 (03:30→23:00)
[2017-02-08] MEDS: ASPIRIN EC PO SCH (09:02)
--- NOTE | 2017-02-08 09:32 | PROGRESS NOTE ---
DATE: 02/08/2017 SUBJECTIVE: Ms. Carrillo is awake and alert. Appears comfortable, pleasant, no complaints. OBJECTIVE: Vital Signs: Temp 97.5 degrees, pulse 118, respirations 16, blood pressure 133/68. HEENT: Pupils are equal and round. CVP less than 6 cm. Lungs: Clear in all lung butt. Cardiovascular exam: Regular rhythm and rate without murmurs. : The urine output above 800 mL. LABS: White count 7140, hematocrit 35, platelet count 235,000. Sodium 140, potassium 3.5, chloride 102, bicarbonate 29, BUN 30, creatinine 1.2. CPK was 199, 221. Troponin was 0.093 and then 0.081. ASSESSMENT AND PLAN: 1. Atrial fibrillation. Rate is controlled. 2. She had a non-Q-wave ST ischemia, seems to be doing much better. 3. Very weak fall risk and continue physical therapy. Determined plans for discharge. She is on metoprolol 25 mg q. 6 hours. She is getting normal saline at 75 mL an hour, aspirin 81 mg a day. Physical therapy is involved. Social Service involved as well. Determine what we want to do for discharge planning. Dr. Grajeda is following. Electrolytes look pretty good. Aspirin is being continued but, because of her risk of fall, did not want to pursue aggressive anticoagulation. cc: Martin Walker MD
[2017-02-09] MEDS: LOPRESSOR PO SCH ×3 (02:21→14:30)
[2017-02-09] MEDS: DUONEB (A & A) INH SCH ×3 (02:55→11:27)
--- NOTE | 2017-02-09 08:06 | PROGRESS NOTE ---
DATE: 02/09/2017 SUBJECTIVE: She is awake and alert. Feels good. No complaints. No chest pain. Norwood catheter was taken out last night. She did well with that. The plan is to continue physical therapy and try to get her a little stronger. See where they want to go; if she wants to go home with home health or if she wants to go to rehab. OBJECTIVE: Vital signs: Today temp 97.9 degrees, pulse 90, respirations 24, and blood pressure 137/90. HEENT: Pupils are equal, round. Lungs: Clear in all lung butt. Cardiovascular: Regular rhythm and rate without murmur or S3. Abdomen: Soft. Skin: Warm and dry. Intake and output: Urine output 1800 mL. LAB: White count 7,140. This is from the 9th. Hematocrit stable at 35, platelet count 235,000. Chemistry: Sodium 140, potassium 3.5, chloride 102, bicarb 29, BUN 30, creatinine 1.2, calcium 8.7, magnesium 1.8. ASSESSMENT AND PLAN: 1. Atrial fibrillation. Rate is well controlled. 2. Non-Q-wave ST ischemia, improved. No active ischemia right now. 3. Very weak and fall risk. Continue physical therapy. Norwood catheter out. Explore discharge plans. REVIEW OF HER ORDERS: I do not see anything different. She is getting normal saline at 75 mL an hour, aspirin 81 mg a day, and metoprolol 25 mg q.6 hours. cc: Martin Walker MD
[2017-02-09] MEDS: ASPIRIN EC PO SCH (08:08)
[2017-02-09 10:38] VITALS: BP 119/62
--- NOTE | 2017-02-09 12:20 | DISCHARGE SUMMARY ---
ADMISSION DATE: 02/02/2017 DISCHARGE DATE: 02/09/2017 CONSULTATION: Dr. Krishnamurthy, cardiology. PERTINENT PROCEDURES: 1. 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 2. Echocardiogram showed mild to moderate degree of aortic regurgitation, mild degree of tricuspid regurgitation and pulmonic regurgitation. Pulmonary pressure of 48 mm mmHg. EF is estimated to be at 70% to 75%. Difficult study secondary to the patient being in atrial fibrillation with RVR. 3. Follow up chest x-ray showed stable cardiomegaly. Stable aneurysmal dilatation of aortic arch measuring up to 6 cm. No new or focal infiltrates. DISCHARGE DIAGNOSES: 1. Atrial fibrillation with rapid ventricular response, now rate controlled. 2. Non Q-wave ST ischemia, improved. 3. Generalized deconditioning. Patient works with physical therapy. She will be discharged to rehabilitation today. 4. Altered mental status, resolved. 5. Acute kidney injury. Patient is back to historical baseline. HOSPITAL COURSE BRIEFLY: Ms. Carrillo is an 86-year-old, female with a known torturous aorta, congestive heart failure, previous CVA, coronary artery disease with stenting, hypertension, hyperlipidemia. She was previously discharged from [facility] after a 5 day stint where she was treated for congestive heart failure, altered mental status related to urinary tract infection. She was then released to rehabilitation for 12 days. She started having a wet cough, shortness of breath and increased altered mental status over the last week; however, the daughter stated that the patient's altered mental status had been worsening over the last year. Her health in general has been deteriorating over the last little while. She had decreased ability to ambulate and just overall generalized debility to thrive. The patient does live at home with her elderly . Daughter thought it was possible that she may need long-term care because she was doing so well at rehab and then started not do well again while she was at home. Chest x-ray in the ED revealed increased pulmonary vascular congestion. CT of the thorax was done that showed atelectasis versus fibrosis. No effusion or pneumonia, but I did note the aortic arch aneurysm. The patient was admitted for altered mental status with acute kidney injury. She was started on IV fluids. Blood cultures were obtained and has been no growth for 5 days. Her urinalysis was clear. Patient did go into atrial fibrillation with RVR. She had a repeat echocardiogram and a consultation with cardiology. Dr. Krishnamurthy felt the patient probably had a non Q- wave IL with borderline abnormal troponins, but CK's were normal without any chest pain. He did a detailed discussion with the patient's daughter and to manage medically because she was comfortable on aspirin and continued on beta blockers. Her metoprolol was increased to 25 mg q. 6 hours. She was somewhat hypotensive with the atrial fibrillation, so they held off on increasing the dosage. Also with reference to the anticoagulation therapy, again it was discussed her being such a fall high-risk, and they chose to keep on aspirin alone, instead of a combination of aspirin and Plavix. [facility] was contacted as well as physical therapy to work with the patient for rehabilitation. Patient's rate did become controlled on her increased metoprolol. After speaking with Dr. Walker, the patient is appropriate for discharge to rehab today. VITAL SIGNS: Temperature is 98 degrees, heart rate 61, respirations 22, blood pressure 119/62, O2 is 100% on 3 L nasal cannula. DISCHARGE DIET: Regular. DISCHARGE MEDICATIONS: 1. Aspirin 81 mg p.o. daily. 2. Lipitor 80 mg p.o. daily. 3. Lisinopril 10 mg p.o. daily. 4. Her metoprolol has been exchanged for Toprol-XL 50 mg p.o. daily as discussed with Dr. Walker. 5. Prilosec 20 mg p.o. daily. FOLLOW UP: The patient is being discharged to rehabilitation. She will need to follow up with Dr. Krishnamurthy in 3-4 weeks, as well as her primary care physician, Dr. Chip Means, after rehabilitation. The patient can return to the ED for any worsening of symptoms. The patient was made a DNR level 1 status while she was inpatient in the hospital. DISCHARGE TIME: Greater than 30 minutes. Dictated by [facility] for Martin Walker MD cc: MD Chip Jay MD
[2017-02-09] MEDS: NS 1,000 ML IV SCH (14:16)
== END 2017-02-09 14:45 ==
LOC: ED 17:31 → 4N 22:56 → SUATTDRO 22:56 → 3S 02-04 08:00
PROVIDERS: ATTEND Emergency Medicine